=== PATIENT | male | born 2005 | race Caucasian/White ===

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

== ENCOUNTER 2024-05-20 11:53 | Emergency (ER) | payer BC ==
[~2024-05-20] VITALS: Ht 188 cm; Wt 95.0 kg
[~2024-05-20 11:53] MED LIST changes: +FLEXERIL5 M1 PO
[2024-05-20] MEDS ORDERED: POVIDONE IODINE 0.5 OZ/BTL TOP ONE (12:55)
[2024-05-20] MEDS ORDERED: Diph, Acellular Pertussis, Tet 0.5 ML/VIAL (Tdap) SDV IM ONE (12:55)
[2024-05-20] MEDS ORDERED: SODIUM CHLORIDE 500 ML BTL IR ONE (12:55)
[2024-05-20] MEDS ORDERED: LIDOcaine HCl 1% (Local Anesth.) 20 ML VIAL STI STA (12:55)
[2024-05-20] MEDS ORDERED: NEOMYCIN-BACITRACIN-POLYMYXIN 0.5 GM/PAK PAK TOP ONE (12:55)
[2024-05-20] MEDS ORDERED: KEFLEX500 MG PO (13:37)
[2024-05-20 14:03] VITALS: BP 131/79
== END 2024-05-20 14:04 | disposition home or self-care (01) | DRG 605 ==
LOC: ED 11:53
DX: S81.012A Laceration without foreign body, left knee, initial encounter (principal); W31.2XXA Contact with powered woodworking and forming machines, initial encounter
CPT/HCPCS: 90715